=== PATIENT | male | born 1960 | race Caucasian/White ===

== ENCOUNTER 2016-07-11 13:30 | Emergency (ER) | payer OTHER, MEDICARE ==
[~2016-07-11] VITALS: Ht 167.6 cm; Wt 88.5 kg
[~2016-07-11 13:30] MED LIST: AMOXICILLIN500 M1 PO; BACTRIM DS 8001 TAB PO; MOBIC15 MG PO
[2016-07-11] MEDS ORDERED: LAMICTAL100 M2 PO (14:09)
[2016-07-11] MEDS ORDERED: DEPAKOTE500 M1 PO ×2 (14:09)
--- NOTE | 2016-07-11 15:24 | ED MVC/FALL/TRAUMA COMPLAINT ---
History of Present Illness General Chief Complaint: Fall Stated Complaint: FALL DOWN 7/8 STAIRS W/SHOULDER,BACK, RIB PAIN Source: patient Exam Limitations: no limitations Vital Signs & Intake/Output Vital Signs & Intake/Output Vital Signs Date Time Temp Pulse Resp B/P Pulse O2 O2 Flow FiO2 Ox Delivery Rate 07/11 1603 97.8 82 18 126/77 98 Room Air 07/11 1338 98.3 89 20 130/89 96 Room Air Allergies Coded Allergies: NO KNOWN ALLERGIES (02/12/11) Reconcile Medications Divalproex Sodium (Depakote) 500 MG TABLET.DR 1 TAB PO DAILY UNKNOWN ( Reported) Divalproex Sodium (Depakote) 500 MG TABLET.DR 2 TAB PO QPM UNKNOWN (Reported) Lamotrigine (Lamictal) 100 MG TABLET 1 TAB PO BID UNKNOWN (Reported) Oxycodone HCl/Acetaminophen (Percocet 5-325 MG Tablet) 5 MG-325 MG TABLET 1 TAB PO BID pain Triage Note: PT TO ED C/O LEFT SIDED RIB, LEFT SIDED BACK LEFT SHOULDER PAIN. STATES HE "TUMBLED" DOWN 7-8 STAIRS THIS AM. HE WAS HAVING A HARD TIME LIFTING HIS LEG UP WHILE WALKING DOWN THE STAIRS. STATES HEADSTRIKE, NO LOC. TOOK MOTRIN AFTER THE FALL. Triage Nurses Notes Reviewed? yes Onset: Abrupt Duration: hour(s):, constant, continues in ED Timing: single episode today Severity: moderate, severe Method of Injury: fall HPI: 56-year-old male comes into emergency room for further evaluation of left posterior back/rib pain after falling down steps this morning. Patient reports that he slid down about 7 steps. Denies hitting his head. Denies any neck pain. Patient is complaining of pain only to his backside. Denies any extremity pain or injuries. Denies any anticoagulants that is he is on. Sharp throbbing pain. Continuous. Moderate. (TAMMI DAI) Past History Travel History Traveled to [place] past 21 day No Medical History Any Pertinent Medical History? see below for history Neurological: seizure Surgical History Surgical History: non-contributory Psychosocial History What is your primary language German Tobacco Use: Quit >30 days ago ETOH Use: denies use Illicit Drug Use: denies illicit drug use Family History Hx Contributory? No (TAMMI DAI) Review of Systems Review of Systems Constitutional: Reports: no symptoms. Eyes: Reports: no symptoms. Ears, Nose, Throat, Mouth: Reports: no symptoms. Respiratory: Reports: no symptoms. Cardiovascular: Reports: no symptoms. Gastrointestinal/Abdominal: Reports: no symptoms. Genitourinary: Reports: no symptoms. Musculoskeletal: Reports: see HPI. Skin: Reports: no symptoms. Neurological/Psychological: Reports: no symptoms. All Other Systems: Reviewed and Negative (TAMMI DAI) Physical Exam Physical Exam General Appearance: well developed/nourished, no apparent distress, alert Head: atraumatic, normal appearance Eyes: Bilateral: normal appearance, PERRL, EOMI. Ears, Nose, Throat, Mouth: hearing grossly normal, moist mucous membrane Neck: normal inspection, full range of motion Respiratory: normal breath sounds, no respiratory distress Cardiovascular: regular rate/rhythm Gastrointestinal: soft, non-tender Back: pain left posterior rib Extremities: normal range of motion Neurologic/Psych: awake, alert, oriented x 3, normal gait Skin: intact, normal color Core Measures ACS in differential dx? No Severe Sepsis Present: No Septic Shock Present: No (TAMMI DAI) Progress Differential Diagnosis: abd injury, C/T/L spine injury, ext injury, ICH, pelvis injury, pnemothorax, spinal cord injury Plan of Care: Orders Procedure Date/time Status CT CHEST WO IV CONTRAST 07/11 1441 Active Diagnostic Imaging: Viewed by Me: CT Scan. Discussed w/RAD: CT Scan. Radiology Impression: SERVICE DATE: 07/11/16 EXAM TYPE: CAT - CT CHEST WO IV CONTRAST EXAMINATION: CT CHEST WITHOUT CONTRAST CLINICAL INFORMATION: Left posterior rib pain; question fractures. COMPARISON: Chest radiograph dated 08/27; CT abdomen and pelvis dated 04/10/2012. TECHNIQUE: Multidetector volumetric CT imaging of the chest was done. Axial MIP volume rendering provided. Sagittal and coronal reformatted images were obtained. DLP: 378.05 mGy -cm. FINDINGS: WATER ANALYST: The lungs are grossly clear. LUNGS: There is mild posterior left base round atelectasis, measuring approximately 4.2 x 2.2 cm (2: 37). This is unchanged from 04/10/2012 (2:6). There are further bilateral lower lobe scattered foci of minor scar/subsegmental atelectasis, also stable. No new infiltrate or groundglass opacity is seen. There is no mass or nodule. No bleb or bullous formation is seen. The central airways appear patent. MEDIASTINUM: The thyroid gland is unremarkable. There is no sizable mediastinal or hilar adenopathy. There is no thoracic aortic aneurysm. PLEURA: There is no pleural effusion. There is a calcified posterior right base pleural plaque again seen, with stable adjacent focus of round atelectasis, as above. No pericardial effusion. AXILLA: No lymphadenopathy. An impulse generator is seen in the upper anterior left thorax with the electrode directed towards the cervical region. UPPER ABDOMEN: A moderate sized gallstone is seen. There is mild hepatic steatosis. OSSEOUS STRUCTURES: There is multi-level marked thoracolumbar spondylosis and degenerative disc disease, with appearance suggesting possible DISH (diffuse idiopathic skeletal hyperostosis). There are multiple old, healed right rib fractures. As well, there are old, healed posterior left fifth and sixth rib fractures. There is sclerosis and mild expansion of the left first rib , possibly related to attached to a change. There appear to have been prior T6 and T7 laminectomies. No acute or aggressive osseous abnormality is seen. IMPRESSION: 1. No acute fracture or dislocation is seen. 2. There appear to been prior approximately T6 and T7 laminectomies; please correlate with the patient's past surgical history. There are further healed posttraumatic and degenerative changes of the thoracic spine. 3. There is again a calcified posterior right base pleural plaques, consistent with prior asbestos exposure. There is a stable adjacent focus of round atelectasis, unchanged from 2012. 4. There is gallstone disease. 5. There is mild hepatic steatosis. DICTATED BY: ARIEL GARCIA MD DATE/ TIME DICTATED:07/11/161513 COMPUTER HARDWARE TECHNICIAN:EDUARD (TAMMI DAI) Departure Departure Disposition: HOME OR SELF CARE Condition: Stable Clinical Impression Primary Impression: Contusion of rib on left side Referrals: REANNA STEWART MD (PCP/Family) Additional Instructions: Take Percocet as prescribed. Follow-up with her doctor. Return if any other concerns. A copy of the CAT scan has been provided to you. Please go over all results of today's visit with your primary care doctor. Contact your primary care doctor to let them know you were here in the emergency room. There may be nonspecific findings which may not be related to your visit today here in the emergency room but may require further evaluation and chronic monitoring by your primary care doctor. If you had a laceration today the chance of foreign body always remains. You should follow-up with your primary care doctor for recheck in 3-5 days for a wound check. If you had an x-ray done there is a chance that a fracture could have been missed on initial read and you should follow-up with your primary care doctor for repeat x-rays if symptoms persist. If your blood pressure was elevated here in the emergency room please have rechecked by her primary care doctor within the next 48 hours by your primary care doctor. If you were prescribed a narcotic here in the emergency room or any type of controlled substances you're not allowed to drive while taking this medication or operate any type of heavy machinery. Narcotics can make you feel lightheaded dizziness nausea and can cause constipation. You may need to pick up and delivery driver a stool softener. Thank you for choosing [facility] emergency room. Please return to the emergency room immediately if you have any other concerns worsening of symptoms. Departure Forms: Customer Survey General Discharge Information Prescriptions: Current Visit Scripts Oxycodone HCl/Acetaminophen (Percocet 5-325 MG Tablet) 1 TAB PO BID #10 TAB (TAMMI DAI) PA/MIXER WET POUR Co-Sign Statement Statement: ED Attending supervision documentation- [] I saw and evaluated the patient. I have also reviewed all the pertinent lab results and diagnostic results. I agree with the findings and the plan of care as documented in the PA's/MIXER WET POUR's documentation. x I have reviewed the ED Record and agree with the PA's/MIXER WET POUR's documentation. [] Additions or exceptions (if any) to the PAs/MIXER WET POUR's note and plan are summarized below: [] (CANDY SAWYER,OMAR)
--- NOTE | 2016-07-11 15:33 | CT SCAN REPORT ---
EXAMINATION: CT CHEST WITHOUT CONTRAST CLINICAL INFORMATION: Left posterior rib pain; question fractures. COMPARISON: Chest radiograph dated 08/27/2008; CT abdomen and pelvis dated 04/10/2012. TECHNIQUE: Multidetector volumetric CT imaging of the chest was done. Axial MIP volume rendering provided. Sagittal and coronal reformatted images were obtained. DLP: 378.05 mGy-cm. FINDINGS: CAREER CENTER DIRECTOR: The lungs are grossly clear. LUNGS: There is mild posterior left base round atelectasis, measuring approximately 4.2 x 2.2 cm (2:37). This is unchanged from 04/10/2012 (2:6). There are further bilateral lower lobe scattered foci of minor scar/subsegmental atelectasis, also stable. No new infiltrate or groundglass opacity is seen. There is no mass or nodule. No bleb or bullous formation is seen. The central airways appear patent. MEDIASTINUM: The thyroid gland is unremarkable. There is no sizable mediastinal or hilar adenopathy. There is no thoracic aortic aneurysm. PLEURA: There is no pleural effusion. There is a calcified posterior right base pleural plaque again seen, with stable adjacent focus of round atelectasis, as above. No pericardial effusion. AXILLA: No lymphadenopathy. An impulse generator is seen in the upper anterior left thorax with the electrode directed towards the cervical region. UPPER ABDOMEN: A moderate sized gallstone is seen. There is mild hepatic steatosis. OSSEOUS STRUCTURES: There is multi-level marked thoracolumbar spondylosis and degenerative disc disease, with appearance suggesting possible DISH (diffuse idiopathic skeletal hyperostosis). There are multiple old, healed right rib fractures. As well, there are old, healed posterior left fifth and sixth rib fractures. There is sclerosis and mild expansion of the left first rib, possibly related to attached to a change. There appear to have been prior T6 and T7 laminectomies. No acute or aggressive osseous abnormality is seen. IMPRESSION: 1. No acute fracture or dislocation is seen. 2. There appear to been prior approximately T6 and T7 laminectomies; please correlate with the patient's past surgical history. There are further healed posttraumatic and degenerative changes of the thoracic spine. 3. There is again a calcified posterior right base pleural plaques, consistent with prior asbestos exposure. There is a stable adjacent focus of round atelectasis, unchanged from 2011. 4. There is gallstone disease. 5. There is mild hepatic steatosis.
[2016-07-11] MEDS ORDERED: PERCOCET 5-3251 EACH PO (15:42)
[2016-07-11 16:03] VITALS: BP 126/77
== END 2016-07-11 16:05 ==
LOC: ERH 13:30
DX: S20.212A Contusion of left front wall of thorax, initial encounter (principal); W10.9XXA Fall (on) (from) unspecified stairs and steps, initial encounter
CPT/HCPCS: 96372